=== PATIENT | male | born 1940 | race Caucasian/White ===

== ENCOUNTER 2016-11-05 01:24 | Emergency (ER) | payer MEDICARE, MEDICAID ==
[~2016-11-05] VITALS: Ht 180.3 cm; Wt 99.1 kg
[~2016-11-05 01:24] MED LIST: ACETAMIN500 M2 PO; AMIODARONE200 MG PO; AMLODIPINE5 MG PO; ASPIRIN LOW DOS81 M2 PO; ATENOLOL50 MG PO; AUGMENTIN875TAB PO; BL ADULT ASA81 MG PO; C 250 PO; CIPROFLOXACN500 MG PO; CRANBERRY PO; CRANBERRY1000 MG PO; DILTIAZEM240 MG PO; DIOVAN80 MG PO; DOXAZOSIN8 MG PO; DULERA1 AE1 IN; ELIQUIS2.5 MG PO; IRON325 MG OR; KEFLEX500 MG PO; LASIX 40 MG TAB40 MG PO; LOSARTAN POT50 MG PO; METOPROL TAR25 MG PO; MULTIVITAL OR; NASONEX50 MCG/ACT IN; NIZORAL2 % EX; OMEGA 31000 MG PO; POLYMYXIN B/; PROAIR HFA IN; ROLAIDS PO; TYLENOL 500MG TAB PO; VITAM PO; VITAMIN C500 M4 OR
[2016-11-05 02:11] VITALS: BP 149/88
== END 2016-11-05 02:12 | disposition home or self-care (01) ==
LOC: ED 01:24
DX: S91.111A Laceration without foreign body of right great toe without damage to nail, initial encounter (principal); W22.8XXA Striking against or struck by other objects, initial encounter; Y93.89 Activity, other specified; Y92.008 Other place in unspecified non-institutional (private) residence as the place of occurrence of the external cause

== ENCOUNTER 2017-11-07 16:44 | Emergency (ER) | payer MEDICARE, MEDICAID ==
[~2017-11-07] VITALS: Ht 180.3 cm; Wt 99.5 kg
[2017-11-07] MEDS ORDERED: SYMBICORT1 AE1 IN (17:20)
[2017-11-07] MEDS ORDERED: TRAMADOL HCL50 MG PO (17:25)
[2017-11-07 17:50] LABS: URINE BILIRUBIN - DIPSTICK NEGATIVE (NEGATIVE); URINE BLOOD DIPSTICK LARGE (NEGATIVE); URINE COLOR YELLOW; URINE GLUCOSE - DIPSTICK NEGATIVE (NEGATIVE); URINE KETONE NEGATIVE (NEGATIVE); URINE LEUK ESTERASE SMALL (Negative); URINE NITRITE - DIPSTICK NEGATIVE (Negative); URINE PROTEIN - DIPSTICK 100 mg/dL (NEG-TRACE); URINE UROBILINOGEN - DIPSTICK 0.2 E.U./dL (0.2)
[2017-11-07 17:51] LABS: URINE CLARITY CLEAR
[2017-11-07 17:58] LABS: URINE BACTERIA RARE hpf; URINE RBC TNTC RBC/hpf (0-5); URINE SQUAMOUS EPITHELIAL CELL FEW EPI/hpf (0-FEW)
[2017-11-07] MEDS ORDERED: TORADOL PO (18:15)
[2017-11-07] MEDS ORDERED: ULTRAM50 M1 PO (18:15)
[2017-11-07] MEDS ORDERED: MACROBID100 MG PO (18:15)
[2017-11-07] MEDS ORDERED: PERCOCET 5/325M1 TAB PO (18:23)
[2017-11-07 18:45] VITALS: BP 128/85
== END 2017-11-07 18:50 | disposition home or self-care (01) ==
LOC: ED 16:44
PROVIDERS: Emergency Medicine
DX: I73.9 Peripheral vascular disease, unspecified (principal); N18.6 End stage renal disease; Z99.2 Dependence on renal dialysis; I48.91 Unspecified atrial fibrillation; J44.9 Chronic obstructive pulmonary disease, unspecified; G62.9 Polyneuropathy, unspecified; N39.0 Urinary tract infection, site not specified; Z96.0 Presence of urogenital implants

== ENCOUNTER → 2017-11-12 | Outpatient (REF) | payer MEDICARE, MEDICAID ==
[~2017-11-12] MED LIST changes: +MACROBID100 MG PO; +PERCOCET 5/325M1 TAB PO; +SYMBICORT1 AE1 IN; +TORADOL PO; +TRAMADOL HCL50 MG PO; +ULTRAM50 M1 PO
[2017-11-12 16:59] LABS: URINE BILIRUBIN - DIPSTICK NEGATIVE (NEGATIVE); URINE BLOOD DIPSTICK LARGE (NEGATIVE); URINE COLOR YELLOW; URINE GLUCOSE - DIPSTICK NEGATIVE (NEGATIVE); URINE KETONE NEGATIVE (NEGATIVE); URINE LEUK ESTERASE MODERATE (Negative); URINE NITRITE - DIPSTICK NEGATIVE (Negative); URINE PH 5.5 (4.5-8.0); URINE PROTEIN - DIPSTICK 100 mg/dL (NEG-TRACE); URINE SPECIFIC GRAVITY 1.025; URINE UROBILINOGEN - DIPSTICK 0.2 E.U./dL (0.2)
[2017-11-12 17:08] LABS: URINE CLARITY TURBID; URINE WBC TNTC WBC/hpf (0-5)
== END | disposition home or self-care (01) ==
LOC: LABSPEC 16:19
PROVIDERS: ATTEND Internal Medicine
DX: N30.90 Cystitis, unspecified without hematuria (principal); B96.1 Klebsiella pneumoniae [K. pneumoniae] as the cause of diseases classified elsewhere

== ENCOUNTER 2017-12-07 12:14 | Observation (INO) | payer MEDICARE, MEDICAID ==
[~2017-12-07] VITALS: Ht 177.8 cm; Wt 99.5 kg
--- NOTE | 2017-12-07 12:15 | NUR ---
PT DIRECTLY TO ROOM VIA MOTORIZED WHEELCHAIR AND REPORTS MIDSTERNAL PRESSURE SINCE THIS MORNING WITH INTERMITTENT SOB.
--- NOTE | 2017-12-07 12:25 | NUR ---
CARDIZEM 10MG IVP GIVEN ORDERED WITH GOOD EFFECT.
[2017-12-07] MEDS ORDERED: VITAMIN E400 UNIT PO (12:41)
[2017-12-07] MEDS ORDERED: VITAMIN B6250 MG PO (12:42)
[2017-12-07 13:02] LABS: HEMATOCRIT 37.5 % (39.0-50.0); HEMOGLOBIN 11.5 g/dl (14.0-18.0); IMMATURE GRANULOCYTES 0.4 % (0.0-5.0); MEAN CELL VOLUME 105.9 fL CALC (80.0-100.0); MEAN CORPUSCULAR HGB 32.5 pG CALC (26.0-32.0); MEAN CORPUSCULAR HGB CONC 30.7 g/L CALC (32.0-36.0); NEUT# 10.16 thou/uL (1.82-7.42); RED BLOOD COUNT 3.54 mill/uL (4.70-6.10); RED CELL DISTRI WIDTH 18.6 % (11.5-15.5)
[2017-12-07 13:12] LABS: CREATININE 2.7 mg/dL (0.7-1.3)
--- NOTE | 2017-12-07 13:25 | NUR ---
PT RESTING PAIN FREE AT THIS TIME. VSS. UPDATED ON EAIT TIME AND OBSERDVAITON OF SX
--- NOTE | 2017-12-07 13:41 | NUR ---
PT STATES STILL CHEST PAIN FREE. AWARE OF PENDING ADMIT AND AGREEABLE. STATES HAS LLE PAIN /. LEGS APPEAR RESTLESS.MD INFORMED.
[2017-12-07 14:02] LABS: CHOLESTEROL HDL RATIO 1.4 (<4.4 (CALC))
--- NOTE | 2017-12-07 14:04 | NUR ---
PT SAT UP IN BED FOR LUNCH MEAL. NO DISTRESS,NO COMPLAINTS.
--- NOTE | 2017-12-07 14:43 | NUR ---
PT CONSUMED 100% OF MEAL. DENIES SOB OR CP. VSS. PALPABLE THRILL TO AV SHUNT LT UPPER ARM. SR X2, HOB ELEVATED
--- NOTE | 2017-12-07 14:57 | NUR ---
CALLED REPORT TO EDWARD GRIDER MS2
--- NOTE | 2017-12-07 15:04 | NUR ---
TRANSPORTED TO ME VIA STRETCHER ON TELE MONITOR WITH O2@2LPM VIA NC. NO DISTRESS. AFSHINE SCOOTER TO ME WITH PTS OWN ANTIONETTE LIFT PAD ON CHAIR.
[2017-12-07 15:15] VITALS: BP 111/78
--- NOTE | 2017-12-07 15:15 | NUR ---
PT CAME FROM ER VIA STRETCHER BY EDWARD ROMERO. X4 PERSON ASSIST PT TO TRANSFER TO BED. SAFETY PRECAUTIONS REINFORCED AND CALL LIGHT IN REACH. IN ROOM.
--- NOTE | 2017-12-07 15:55 | NUR ---
EDDIED CALLED PT HEART RATE IS 129. VS OBTAIN [id number], BP 113/76. PT STATED THAT HE HAS PAIN IN LEGS. NOTIFIED GAVIN GAYTAN RE: PULSE AND PAIN. ORDERS RECEIVED.
[2017-12-07 16:00] VITALS: BP 113/74
--- NOTE | 2017-12-07 17:21 | NUR ---
ASSESSMENT DONE. TELE IN PLACE. PT IS A&O X3. LUNG SOUND CLEAR/DIMINISHED. O2 AT 2L/MIN VIA NC. # 20 RAC APPEAR HEALTHY . PT HAS A COLOSTOMY IN PLACE. VAUGHN IS FROM HOME AND IS PATENT WITH DARK ABBI URINE. PT STATED VAUGHN WAS CHANGE 12/05/17 BY HIS HOME HEALTH NURSE. PT HAS BILAT LEG DRESSING IN PLACE DCI. PT STATED HE HAS WOUNDS IN HIS LEGS.TOLD PT I NEED TO TAKE PICTURES OF LEGS. PT REFUSED STATING DRESSING IS NOT TO BE REMOVED ON TILL 12/08/17. WAS UNABLE TO TAKE PICTURES OF LEGS. PT DID LET ME TAKE PICTURES OF BUTTOCK BED SORES BUT TOLD ME TO LEAVE DRESSING IN PLACE. PT STATED HE HAD DIALYSIS ON 12/06/17. LEFT FISULA IN ARM +THRILL/BRUIT. IN ROOM. CALL LIGHT IN REACH.
[2017-12-07 20:00] VITALS: BP 130/83
--- NOTE | 2017-12-07 20:00 | NUR ---
PATIENT RESTING IN BED WITH O2 VIA NASAL CANNULA IN PLACE AT 2LPM. PATIENT IS AWAKE ALERT AND ORIENTEDX3. TELE MONITOR IN PLACE READING A-FIB-104. PATIENT DENIES ANY CHEST PAIN AT THIS TIME. PATIENT STATES THAT HE DOES HAVE CHRONIC PAIN TO LEGS, FEET AND HEELS. BOTH HEEL ARE PURPLE AND SOMEWHAT MUSHY-ENCOURAGED PATIENT TO OFFLOAD BOTH FEET OFF MATTRESS TO PREVENT ANY FURTHER BREAKDOWN. PATIENT WITH DRESSING TO BLE THAT ARE DCI AT THIS TIME. REFUSING TO HAVE THEM CHANGED AT THIS TIME-STATES THAT HOME HEALTH TAKES CARE OF THOSE AND THEY ARE NOT DUE TO BE CHANGED UNTIL TOMMORROW.PATIENT ALSO WITH DRESSING TO BUTTOCKS/COCCYX AREA. PATIENT WITH COLOSTOMY TO LEFT ABD-APPLIANCE INTACT AND PATIENT STATES THAT HIS JUST CHANGED THE BAG. VAUGHN CATH PATENT AND DRAINING DARK ABBI URINE. PATIENT IS H/D PATIENT LAST WITH DIALYSIS ON FRI. DUE AGAIN ON . AV FISTULA TO LEFT ARE INTACT WITH BRUIT+, THRILL+. PATIENT STATES THAT HE IS MOSTLY BEDBOUND AND HAS BEEN FOR SOME TIME. SAFETY PRECAUTIONS REINFORCED. CALL LIGHT IN REACH. WILL CONT TO MONITOR.
--- NOTE | 2017-12-07 23:50 | NUR ---
RECIEVED CALL FROM BILL IN THE ER PATIENT RYTHM CHANGE TO [place] ON TELE. PATIENT RESTING QUIETLY IN BED. SKIN WARM AND DRY AND VS WERE JUST TAKEN. WILL CONT TO MONITOR. [id number]- CALLED ER AND BILL STATES THAT PATIENT IS NOW SHOWING A-FIB ON TELE. EKG ORDERED. WILL CONT TO MONITOR.
--- NOTE | 2017-12-08 | NUR ---
PATIENT APPEARS SLEEPING WITH O2 VIA NASAL CANNULA IN PLACE. RESP ARE EVENA AND UNLABORED. TELE MONITOR IN PLACE. CALL LIGHT IN REACH. WILL CONT TO MONITOR.
[2017-12-08 00:10] VITALS: BP 133/97
--- NOTE | 2017-12-08 03:43 | NUR ---
PATIENT RESTING IN BED-C/O SEVERE SHARP PAIN TO BOTH FEET AND HEELS. MEDICATED WITH LORTAB 5/325MG PO FOR 10/10 PAIN SCALE. BOTH HEELS REMAIN ELEVATED OFF THE MATRESS USING PILLOWS TO OFFLOAD. PATIENT CONT WITH O2 VIA NASAL CANNULA AT 2LPM. TELE MONITOR IN PLACE. VAUGHN CATH DRAINING DARK ABBI URINE. COLOSTOMY APPLIANCE INTACT WITH DRAINAGE AT THIS TIME. SAFETY PRECAUTIONS REINFORCED.CALL LIGHT IN REACH. WILL CONT TO MONITOR.
[2017-12-08 04:00] VITALS: BP 141/91
--- NOTE | 2017-12-08 05:12 | NUR ---
PATIENT STATES THAT HIS FOOT AND HEEL PAIN IS IMPROVED TO 2/10 ON PAIN SCALE. PATIENT CONT WITH HEELS OFFLOADED FROM MATTRESS USING PILLOWS. CALL LIGHT IN REACH. WILL CONT TO MONITOR.
--- NOTE | 2017-12-08 07:36 | NUR ---
SHIFT CHANGE FROM STARLA BALTAZAR SLEEPING IN HIGH FOWLERS POSITION, BREATHING EVEN SHALLOW, TELE MONITOR IN PLACE, VAUGHN CATHETER IN PLACE, NO SIGN DISCOMFORT, CALL NARANJO IN REACH.
[2017-12-08 09:17] VITALS: BP 119/80
--- NOTE | 2017-12-08 09:37 | NUR ---
0800 pt was asked if he would like to get a bath today. 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 pt was bathed and placed lotion and powder. pt also used deodorant at this time as well. pt was repositioned as well at this time. dave/ yin care was also provided at this time. linens were changed. new gown placed at this time. pt thanked staff for the bath. no complaints at this time. call burt and phone placed with pt.
[2017-12-08] MEDS ORDERED: LORTAB5 PO (10:47)
[2017-12-08 11:20] VITALS: BP 123/83
--- NOTE | 2017-12-08 12:10 | NUR ---
Discharge instructions given. Patient verbalizes understanding of same. Discharged in stable condition via Wheelchair to Home with spouse. All belongings sent with pt. PT LEFT UNIT IN OWN MOTORISED WHEEL CHAIR.
== END 2017-12-08 11:03 | disposition home or self-care (01) ==
LOC: ED 12:14 → ED-I 12:47 → ED 12:47 → ED-I 13:24 → ED 13:41 → MS2 13:42
PROVIDERS: Family Medicine; Nurse Practitioner Family; ADMIT Internal Medicine; ATTEND Internal Medicine
DX: R07.9 Chest pain, unspecified (principal); N18.6 End stage renal disease; Z99.2 Dependence on renal dialysis; G62.9 Polyneuropathy, unspecified; I48.2 Chronic atrial fibrillation; L89.150 Pressure ulcer of sacral region, unstageable; D63.1 Anemia in chronic kidney disease; J43.9 Emphysema, unspecified; R60.0 Localized edema; Z93.3 Colostomy status; Z79.01 Long term (current) use of anticoagulants; Z87.891 Personal history of nicotine dependence

== ENCOUNTER 2017-12-20 06:02 | Emergency (ER) | payer MEDICARE, MEDICAID ==
[~2017-12-20] VITALS: Ht 177.8 cm; Wt 100.0 kg
[~2017-12-20 06:02] MED LIST changes: +LORTAB5 PO; +VITAMIN B6250 MG PO; +VITAMIN E400 UNIT PO
[2017-12-20] MEDS ORDERED: CYMBALTA30 MG PO (06:40)
[2017-12-20 07:08] LABS: HEMATOCRIT 39.1 % (39.0-50.0); IMMATURE GRANULOCYTES 0.8 % (0.0-5.0); MEAN CELL VOLUME 107.7 fL CALC (80.0-100.0); MEAN CORPUSCULAR HGB 33.1 pG CALC (26.0-32.0); MEAN CORPUSCULAR HGB CONC 30.7 g/L CALC (32.0-36.0); NEUT# 11.01 thou/uL (1.82-7.42); RED BLOOD COUNT 3.63 mill/uL (4.70-6.10); RED CELL DISTRI WIDTH 18.9 % (11.5-15.5)
[2017-12-20 07:58] LABS: ALBUMIN 3.7 g/dL (3.2-5.0); BILIRUBIN, TOTAL 1.6 mg/dL (0.0-1.4); CREATININE 3.3 mg/dL (0.7-1.3); TOTAL PROTEIN 6.7 g/dL (6.3-8.2)
[2017-12-20 08:04] LABS: POTASSIUM 6.2 mmol/l (3.5-5.1)
[2017-12-20] MEDS ORDERED: ONDANSETRON4 MG PO (08:32)
[2017-12-20] MEDS ORDERED: CIPROFLOXACN500 MG PO (08:47)
[2017-12-20 09:22] VITALS: BP 126/80
== END 2017-12-20 09:40 | disposition home or self-care (01) ==
LOC: ED 06:02
PROVIDERS: Family Medicine
DX: R10.33 Periumbilical pain (principal); N39.0 Urinary tract infection, site not specified; R11.0 Nausea; N18.6 End stage renal disease; I48.91 Unspecified atrial fibrillation; Z99.2 Dependence on renal dialysis; Z93.3 Colostomy status